=== PATIENT | female | born 1965 | race Hispanic/Latino ===

== ENCOUNTER → 2024-06-18 15:06 | Outpatient (REF) | payer OTHER, SELFPAY ==
[2024-06-23 04:34] LABS: HPV, High Risk Detected; HPV, High Risk Source Cervical
== END ==
LOC: CLINIC 15:06
PROVIDERS: ATTENDING PHYSICIAN Nurse Practitioner Adult Health
DX: Z12.4 Encounter for screening for malignant neoplasm of cervix (principal)
CPT/HCPCS: 87624; G0123

== ENCOUNTER → 2024-07-27 17:04 | Outpatient (REF) | payer OTHER, SELFPAY | LOC: CLAB 17:04 | PROVIDERS: ATTENDING PHYSICIAN Obstetrics & Gynecology Gynecology | DX: N87.9 Dysplasia of cervix uteri, unspecified (principal) | CPT/HCPCS: 88305 ==

== ENCOUNTER 2024-08-10 06:23 | Day surgery (SDC) | payer OTHER, SELFPAY ==
[2024-08-10] VITALS (8 sets, daily range): BP systolic 106–131; BP diastolic 62–95; BMI 38.5
[2024-08-10] MEDS: NORMOSOL-R/PLASMALYTE-A 1000 IV (09:42)
[2024-08-10] MEDS: ZOFRAN 4 MG IV (14:45)
[2024-08-10] MEDS: COMPAZINE 5 MG IV (15:11)
== END 2024-08-10 15:58 | disposition home or self-care (01) ==
LOC: SDS 06:23
PROVIDERS: ATTENDING PHYSICIAN Obstetrics & Gynecology Gynecology
DX: D06.0 Carcinoma in situ of endocervix (principal); N72 Inflammatory disease of cervix uteri; A63.0 Anogenital (venereal) warts
CPT/HCPCS: 57461; 88305; 88307; 88341; 88342

== ENCOUNTER → 2025-01-16 17:01 | Outpatient (REF) | payer OTHER, SELFPAY ==
[2025-01-23 20:46] LABS: HPV, High Risk Not Detected; HPV, High Risk Source Cervical
== END ==
LOC: CLINIC 17:01
PROVIDERS: ATTENDING PHYSICIAN Nurse Practitioner Adult Health
DX: N87.9 Dysplasia of cervix uteri, unspecified (principal)
CPT/HCPCS: 87624

== ENCOUNTER → 2025-04-09 14:55 | Outpatient (REF) | payer OTHER, SELFPAY | LOC: CLINIC 14:55 | PROVIDERS: ATTENDING PHYSICIAN Nurse Practitioner Adult Health | DX: Z12.31 Encounter for screening mammogram for malignant neoplasm of breast (principal) | CPT/HCPCS: 77063; 77067 ==